=== PATIENT | male | born 1955 | race Caucasian/White ===

== ENCOUNTER 2020-11-30 07:25 | Inpatient (IN) ==
[2020-11-30] MEDS ORDERED: Albuterol 2.5 MG/3 ML NEBULIZER IH ONE (07:34)
[2020-11-30] MEDS ORDERED: 0.9 % Sodium Chloride 1,000 ML IVC ONE (07:34)
[2020-11-30 08:13] LABS: Hematocrit 49.3 % (37.5-50.1); Hemoglobin 16.9 g/dL (12.9-16.9); Immature Granulocytes % 1.2 % (0-4); Lymphocytes # 0.9 K/mcL (0.6-4.6); Lymphocytes % 16.5 %; Mean Corpuscular HGB Conc 34.3 g/dL (31.6-35.5); Mean Corpuscular Hemoglobin 31.7 pg (28.0-33.3); Mean Corpuscular Volume 92.5 fL (83.0-100.0); Mean Platelet Volume 9.5 fL (9.4-12.4); Monocytes # 0.5 K/mcL (0.0-1.3); Monocytes % 8.6 %; Neutrophils # 4.2 K/mcL (1.6-8.9); Platelet Count 155 K/mcL (140-400); Red Blood Count 5.33 M/mcL (4.19-5.50); Red Cell Distribution Width 12.6 % (11.5-14.5); Segmented Neutrophils % 73.7 %; White Blood Count 5.7 K/mcL (4.3-11.1)
[2020-11-30 08:15] LABS: VBG HCO3 28 mEq/L (21-27); VBG PCO2 52 mmHg (41-51); VBG PH 7.34 pH Units (7.32-7.42); VBG PO2 32 mmHg (25-50)
[2020-11-30 08:22] LABS: Carboxyhemoglobin 1.7 % (0-5); INR 1.1
[2020-11-30 08:24] LABS: Activated Partial Thrombo Time 28.9 Seconds (26.0-36.0)
[2020-11-30 08:32] LABS: Alanine Aminotransferase 75 Units/L (7-52); Albumin 3.9 g/dL (3.5-5.7); Albumin/Globulin Ratio 1.2 (1.1-2.2); Alkaline Phosphatase 50 Units/L (34-104); Aspartate Amino Transferase 66 Units/L (13-39); BUN/Creatinine Ratio 23 (6-26); Bilirubin,Direct 0.2 mg/dL (0.0-0.2); Bilirubin,Indirect 0.7 mg/dL (0.0-1.0); Bilirubin,Total 0.9 mg/dL (0.3-1.0); Blood Urea Nitrogen 29 mg/dL (8-23); Calcium 8.5 mg/dL (8.6-10.3); Carbon Dioxide 29 mEq/L (23-29); Chloride 99 mEq/L (98-107); Creatine Kinase 271 Units/L (30-223); Globulin 3.2 g/dL (2.4-3.5); Glucose 162 mg/dL (70-105); Osmolality,Calculated 295 (280-300); Potassium 3.3 mEq/L (3.5-5.1); Sodium 138 mEq/L (136-145); Total Protein 7.1 g/dL (6.4-8.9); Troponin I 0.03 ng/mL (< 0.04); eGFR For African Americans > 60 (> 60); eGFR For Non-African Americans 58 (> 60)
[2020-11-30] MEDS ORDERED: Isovue-370 500 ML BOTTLE IVP ONE (08:33)
[2020-11-30 08:46] LABS: Influenza A PCR Negative (Negative); Influenza B PCR Negative (Negative); Resp. Syncytial Virus PCR Negative (Negative)
[2020-11-30 09:08] LABS: SARS-CoV-2 by PCR (In House) Positive (Negative)
[2020-11-30 10:35] LABS: Bacteria,Urine Few per hpf (None-Few); Bilirubin,Urine Negative (Negative); Blood,Urine Negative (Negative); Clarity,Urine Turbid (Clear); Color,Urine Yellow (Yellow); Glucose,Urine (UA) Normal (Normal); Granular Casts,Urine Many per lpf (None Seen); Hyaline Casts,Urine Few per lpf (None Seen); Ketones,Urine Negative (Negative); Leukocyte Esterase,Urine Negative (Negative); Mucus,Urine Few per lpf (None-Few); Nitrite,Urine Negative (Negative); Protein,Urine 70 mg/dL (Neg-Trace); RBC,Urine 0-3 per hpf (0-3); Specific Gravity,Urine 1.029 (1.010-1.025); Squamous Epithelial Cell,Urine Few per hpf (None-Few); Urobilinogen,Urine Normal (Normal)
[2020-11-30] MEDS ORDERED: Ondansetron 4 MG/2 ML VIAL IVP PRN (10:46)
[2020-11-30] MEDS ORDERED: Melatonin 3 MG TABLET PO PRN (10:46)
[2020-11-30 11:36] LABS: C-Reactive Protein 57 mg/L (Less than 10); Lactate Dehydrogenase 489 Units/L (140-271)
[2020-11-30 11:59] LABS: Ferritin > 1500 ng/mL (20-250)
[2020-11-30] MEDS ORDERED: Remdesivir 200 MG in 0.9 % Sodium Chloride 100 ML IVPB ONE (14:10)
[2020-12-01] MEDS: *HR* Enoxaparin 40 MG/0.4 ML SYRINGE SQ SCH (04:48)
[2020-12-01 07:14] LABS: Hematocrit 44.8 % (37.5-50.1); Hemoglobin 15.6 g/dL (12.9-16.9); Mean Corpuscular HGB Conc 34.8 g/dL (31.6-35.5); Mean Corpuscular Hemoglobin 31.8 pg (28.0-33.3); Mean Corpuscular Volume 91.4 fL (83.0-100.0); Mean Platelet Volume 9.4 fL (9.4-12.4); Platelet Count 164 K/mcL (140-400); Red Cell Distribution Width 12.8 % (11.5-14.5)
[2020-12-01 07:19] LABS: Albumin 3.5 g/dL (3.5-5.7); Albumin/Globulin Ratio 1.2 (1.1-2.2); Bilirubin,Direct 0.2 mg/dL (0.0-0.2); Bilirubin,Indirect 0.5 mg/dL (0.0-1.0); Bilirubin,Total 0.7 mg/dL (0.3-1.0); Globulin 2.9 g/dL (2.4-3.5); Total Protein 6.4 g/dL (6.4-8.9)
[2020-12-01 07:20] LABS: BUN/Creatinine Ratio 28 (6-26); Blood Urea Nitrogen 30 mg/dL (8-23); Calcium 8.3 mg/dL (8.6-10.3); Carbon Dioxide 29 mEq/L (23-29); Chloride 104 mEq/L (98-107); Glucose 141 mg/dL (70-105); Magnesium 2.7 mg/dL (1.6-2.6); Osmolality,Calculated 299 (280-300); Phosphorous 2.7 mg/dL (2.7-4.5); Potassium 3.3 mEq/L (3.5-5.1); Sodium 140 mEq/L (136-145); eGFR For African Americans > 60 (> 60); eGFR For Non-African Americans > 60 (> 60)
[2020-12-01] MEDS ORDERED: Dexamethasone Sodium Phos/PF 10 MG/ML VIAL IVP SCH (09:00)
[2020-12-01] MEDS: Dexamethasone Sodium Phos/PF 10 MG/ML VIAL IVP SCH (09:28)
[2020-12-01] MEDS: Remdesivir 100 MG in 0.9 % Sodium Chloride 100 ML IVPB SCH (16:36)
[2020-12-02 02:13] LABS: Alanine Aminotransferase 87 Units/L (7-52); Albumin 3.5 g/dL (3.5-5.7); Albumin/Globulin Ratio 1.3 (1.1-2.2); Alkaline Phosphatase 45 Units/L (34-104); Aspartate Amino Transferase 58 Units/L (13-39); BUN/Creatinine Ratio 26 (6-26); Bilirubin,Direct 0.1 mg/dL (0.0-0.2); Bilirubin,Indirect 0.6 mg/dL (0.0-1.0); Bilirubin,Total 0.7 mg/dL (0.3-1.0); Blood Urea Nitrogen 29 mg/dL (8-23); Calcium 8.4 mg/dL (8.6-10.3); Carbon Dioxide 29 mEq/L (23-29); Chloride 105 mEq/L (98-107); Globulin 2.8 g/dL (2.4-3.5); Glucose 167 mg/dL (70-105); Osmolality,Calculated 300 (280-300); Potassium 3.9 mEq/L (3.5-5.1); Sodium 140 mEq/L (136-145); Total Protein 6.3 g/dL (6.4-8.9); eGFR For African Americans > 60 (> 60); eGFR For Non-African Americans > 60 (> 60)
[2020-12-02] MEDS: *HR* Enoxaparin 40 MG/0.4 ML SYRINGE SQ SCH (05:03)
[2020-12-02] MEDS: Dexamethasone Sodium Phos/PF 10 MG/ML VIAL IVP SCH (09:20)
[2020-12-02] MEDS: Remdesivir 100 MG in 0.9 % Sodium Chloride 100 ML IVPB SCH (15:03)
[2020-12-03] MEDS: *HR* Enoxaparin 40 MG/0.4 ML SYRINGE SQ SCH (05:09)
[2020-12-03] MEDS: Acetaminophen 325 MG TABLET PO PRN (06:23)
[2020-12-03 07:12] LABS: Hematocrit 46.7 % (37.5-50.1); Hemoglobin 15.5 g/dL (12.9-16.9); Mean Corpuscular HGB Conc 33.2 g/dL (31.6-35.5); Mean Corpuscular Hemoglobin 30.9 pg (28.0-33.3); Mean Corpuscular Volume 93.2 fL (83.0-100.0); Mean Platelet Volume 8.8 fL (9.4-12.4); Platelet Count 225 K/mcL (140-400); Red Blood Count 5.01 M/mcL (4.19-5.50); Red Cell Distribution Width 12.7 % (11.5-14.5); White Blood Count 9.3 K/mcL (4.3-11.1)
[2020-12-03 07:33] LABS: BUN/Creatinine Ratio 28 (6-26); Blood Urea Nitrogen 29 mg/dL (8-23); Calcium 8.6 mg/dL (8.6-10.3); Carbon Dioxide 32 mEq/L (23-29); Chloride 105 mEq/L (98-107); Glucose 132 mg/dL (70-105); Magnesium 2.4 mg/dL (1.6-2.6); Osmolality,Calculated 304 (280-300); Potassium 3.7 mEq/L (3.5-5.1); Sodium 143 mEq/L (136-145); eGFR For African Americans > 60 (> 60); eGFR For Non-African Americans > 60 (> 60)
[2020-12-03 07:34] LABS: Albumin 3.5 g/dL (3.5-5.7); Albumin/Globulin Ratio 1.3 (1.1-2.2); Bilirubin,Direct 0.2 mg/dL (0.0-0.2); Bilirubin,Indirect 0.7 mg/dL (0.0-1.0); Bilirubin,Total 0.9 mg/dL (0.3-1.0); Globulin 2.7 g/dL (2.4-3.5); Total Protein 6.2 g/dL (6.4-8.9)
[2020-12-03] MEDS: Dexamethasone Sodium Phos/PF 10 MG/ML VIAL IVP SCH (08:46)
[2020-12-03] MEDS: Remdesivir 100 MG in 0.9 % Sodium Chloride 100 ML IVPB SCH (15:09)
[2020-12-03] MEDS ORDERED: *HR* LORazepam 2 MG/ML VIAL IVP ONE (22:06)
[2020-12-03] MEDS ORDERED: Furosemide 40 MG/4 ML VIAL IVP ONE (22:57)
[2020-12-03 23:07] LABS: ABG Base Excess 2 mEq/L (-2 to 3); ABG HCO3 26 mEq/L (21-27); ABG Oxygen Saturation 80 % (95-98); ABG PCO2 36 mmHg (35-45); ABG PH 7.46 pH Units (7.32-7.45); ABG PO2 41 mmHg (85-104); ABG TCO2 27 mEq/L (20-26)
[2020-12-03] MEDS: Tiotropium 10 INH DOSE IH SCH (23:22)
[2020-12-04 00:23] LABS: ABG Base Excess 2 mEq/L (-2 to 3); ABG HCO3 26 mEq/L (21-27); ABG Oxygen Saturation 82 % (95-98); ABG PCO2 37 mmHg (35-45); ABG PH 7.45 pH Units (7.32-7.45); ABG PO2 43 mmHg (85-104); ABG TCO2 27 mEq/L (20-26)
[2020-12-04 00:59] LABS: Hematocrit 48.2 % (37.5-50.1); Hemoglobin 16.1 g/dL (12.9-16.9); Mean Corpuscular HGB Conc 33.4 g/dL (31.6-35.5); Mean Corpuscular Hemoglobin 30.8 pg (28.0-33.3); Mean Corpuscular Volume 92.2 fL (83.0-100.0); Mean Platelet Volume 9.1 fL (9.4-12.4); Platelet Count 254 K/mcL (140-400); Red Blood Count 5.23 M/mcL (4.19-5.50); Red Cell Distribution Width 12.6 % (11.5-14.5); White Blood Count 11.5 K/mcL (4.3-11.1)
[2020-12-04 01:18] LABS: BUN/Creatinine Ratio 24 (6-26); Blood Urea Nitrogen 25 mg/dL (8-23); Calcium 8.8 mg/dL (8.6-10.3); Carbon Dioxide 32 mEq/L (23-29); Chloride 102 mEq/L (98-107); Glucose 182 mg/dL (70-105); Magnesium 2.2 mg/dL (1.6-2.6); Osmolality,Calculated 301 (280-300); Phosphorous 3.2 mg/dL (2.7-4.5); Potassium 3.9 mEq/L (3.5-5.1); Sodium 141 mEq/L (136-145); eGFR For African Americans > 60 (> 60); eGFR For Non-African Americans > 60 (> 60)
[2020-12-04 01:20] LABS: Albumin 3.7 g/dL (3.5-5.7); Albumin/Globulin Ratio 1.2 (1.1-2.2); Bilirubin,Direct 0.2 mg/dL (0.0-0.2); Bilirubin,Indirect 0.8 mg/dL (0.0-1.0); Total Protein 6.7 g/dL (6.4-8.9)
[2020-12-04] MEDS ORDERED: Haloperidol Lactate 5 MG/ML VIAL IVP ONE (02:11)
[2020-12-04] MEDS ORDERED: Benzonatate 100 MG CAPSULE PO PRN (02:12)
[2020-12-04] MEDS ORDERED: GuaiFENesin/Dextromethorphan TABLET PO PRN (02:13)
[2020-12-04] MEDS ORDERED: Morphine Sulfate 2 MG/ML SYRINGE IVP ONE (02:26)
[2020-12-04] MEDS ORDERED: Haloperidol Lactate 5 MG/ML VIAL IVP STA (02:47)
[2020-12-04] MEDS ORDERED: Dexmedetomidine HCl 400 MCG/100 ML MLS IVC ONE (02:59)
[2020-12-04] MEDS: Dexmedetomidine HCl 400 MCG/100 ML MLS IVC SCH ×4 (03:01→20:45)
[2020-12-04] MEDS ORDERED: *HR* LORazepam 2 MG/ML VIAL IVP ONE (03:13)
[2020-12-04] MEDS ORDERED: *HR* LORazepam 2 MG/ML VIAL ONE (03:19)
[2020-12-04] MEDS ORDERED: Ziprasidone 10 MG, Closed System Device IM Kit 1 EACH in Water for inj. (sterile) 0.5 ML IM ONE (03:31)
[2020-12-04 04:26] LABS: ABG Base Excess 4 mEq/L (-2 to 3); ABG HCO3 29 mEq/L (21-27); ABG Oxygen Saturation 98 % (95-98); ABG PCO2 45 mmHg (35-45); ABG PH 7.42 pH Units (7.32-7.45); ABG PO2 97 mmHg (85-104); ABG TCO2 31 mEq/L (20-26)
[2020-12-04] MEDS: *HR* Enoxaparin 40 MG/0.4 ML SYRINGE SQ SCH (05:25)
[2020-12-04] MEDS: Dexamethasone Sodium Phos/PF 10 MG/ML VIAL IVP SCH (07:36)
[2020-12-04] MEDS: Tiotropium 10 INH DOSE IH SCH (08:02)
[2020-12-04] MEDS: Thiamine (B-1) 100 MG TABLET PO SCH (09:14)
[2020-12-04] MEDS: Cholecalciferol (D-3) 1,000 UNIT (25MCG) TABLET PO SCH (09:14)
[2020-12-04] MEDS: Zinc Sulfate 220 MG CAPSULE PO SCH (09:14)
[2020-12-04] MEDS: Remdesivir 100 MG in 0.9 % Sodium Chloride 100 ML IVPB SCH (14:38)
[2020-12-05] MEDS: *HR* Enoxaparin 40 MG/0.4 ML SYRINGE SQ SCH (05:22)
[2020-12-05] MEDS: Tiotropium 10 INH DOSE IH SCH (08:36)
[2020-12-05 08:40] LABS: Albumin 3.3 g/dL (3.5-5.7); Albumin/Globulin Ratio 1.2 (1.1-2.2); Bilirubin,Direct 0.2 mg/dL (0.0-0.2); Bilirubin,Indirect 0.8 mg/dL (0.0-1.0); Globulin 2.8 g/dL (2.4-3.5); Total Protein 6.1 g/dL (6.4-8.9)
[2020-12-05] MEDS: Thiamine (B-1) 100 MG TABLET PO SCH (10:41)
[2020-12-05] MEDS: Zinc Sulfate 220 MG CAPSULE PO SCH (10:41)
[2020-12-05] MEDS: Cholecalciferol (D-3) 1,000 UNIT (25MCG) TABLET PO SCH (10:41)
[2020-12-05] MEDS: Dexamethasone Sodium Phos/PF 10 MG/ML VIAL IVP SCH (10:46)
[2020-12-05] MEDS: Dexmedetomidine HCl 400 MCG/100 ML MLS IVC SCH (20:12)
[2020-12-06] MEDS: *HR* Enoxaparin 40 MG/0.4 ML SYRINGE SQ SCH (05:53)
[2020-12-06 07:54] LABS: Basophils % 0.2 %; Eosinophils # 0.1 K/mcL (0.0-0.6); Eosinophils % 0.4 %; Hematocrit 46.5 % (37.5-50.1); Hemoglobin 15.4 g/dL (12.9-16.9); Lymphocytes # 0.7 K/mcL (0.6-4.6); Mean Corpuscular HGB Conc 33.1 g/dL (31.6-35.5); Mean Corpuscular Volume 93.6 fL (83.0-100.0); Mean Platelet Volume 10.1 fL (9.4-12.4); Monocytes # 0.3 K/mcL (0.0-1.3); Monocytes % 2.9 %; Neutrophils # 10.1 K/mcL (1.6-8.9); Platelet Count 129 K/mcL (140-400); Red Blood Count 4.97 M/mcL (4.19-5.50); Red Cell Distribution Width 12.7 % (11.5-14.5); Segmented Neutrophils % 89.5 %; White Blood Count 11.3 K/mcL (4.3-11.1)
[2020-12-06] MEDS: Tiotropium 10 INH DOSE IH SCH (07:54)
[2020-12-06 07:58] LABS: BUN/Creatinine Ratio 29 (6-26); Blood Urea Nitrogen 32 mg/dL (8-23); Calcium 8.7 mg/dL (8.6-10.3); Carbon Dioxide 33 mEq/L (23-29); Chloride 99 mEq/L (98-107); Glucose 189 mg/dL (70-105); Osmolality,Calculated 298 (280-300); Sodium 138 mEq/L (136-145); eGFR For African Americans > 60 (> 60); eGFR For Non-African Americans > 60 (> 60)
[2020-12-06] MEDS: Dexamethasone Sodium Phos/PF 10 MG/ML VIAL IVP SCH (09:05)
[2020-12-06] MEDS: Cholecalciferol (D-3) 1,000 UNIT (25MCG) TABLET PO SCH (09:05)
[2020-12-06] MEDS: Zinc Sulfate 220 MG CAPSULE PO SCH (09:05)
[2020-12-06] MEDS: Thiamine (B-1) 100 MG TABLET PO SCH (09:05)
[2020-12-06] MEDS: Dexmedetomidine HCl 400 MCG/100 ML MLS IVC SCH (13:41)
[2020-12-06] MEDS ORDERED: Isovue-370 500 ML BOTTLE IVP ONE (17:42)
[2020-12-06] MEDS ORDERED: *HR* Enoxaparin 120 MG/0.8 ML SYRINGE SQ SCH (21:00)
[2020-12-06] MEDS ORDERED: *HR* Enoxaparin 40 MG/0.4 ML SYRINGE SQ SCH (21:00)
[2020-12-07] MEDS: Dexmedetomidine HCl 400 MCG/100 ML MLS IVC SCH (03:04)
[2020-12-07] MEDS ORDERED: Perflutren Lipid Microsphere 1.3 ML in 0.9 % Sodium Chloride 8.7 ML IVP PRN ×2 (04:05→08:58)
[2020-12-07 06:29] LABS: Basophils % 0.1 %; Eosinophils # 0.2 K/mcL (0.0-0.6); Eosinophils % 1.7 %; Hematocrit 50.7 % (37.5-50.1); Hemoglobin 16.6 g/dL (12.9-16.9); Immature Granulocytes % 0.9 % (0-4); Lymphocytes # 0.5 K/mcL (0.6-4.6); Lymphocytes % 4.6 %; Mean Corpuscular HGB Conc 32.7 g/dL (31.6-35.5); Mean Corpuscular Hemoglobin 30.6 pg (28.0-33.3); Mean Corpuscular Volume 93.5 fL (83.0-100.0); Monocytes # 0.3 K/mcL (0.0-1.3); Monocytes % 2.8 %; Platelet Count 115 K/mcL (140-400); Red Blood Count 5.42 M/mcL (4.19-5.50); Red Cell Distribution Width 12.8 % (11.5-14.5); Segmented Neutrophils % 89.9 %
[2020-12-07 06:45] LABS: BUN/Creatinine Ratio 26 (6-26); Blood Urea Nitrogen 30 mg/dL (8-23); Carbon Dioxide 34 mEq/L (23-29); Chloride 99 mEq/L (98-107); Glucose 160 mg/dL (70-105); Osmolality,Calculated 296 (280-300); Potassium 4.1 mEq/L (3.5-5.1); Sodium 138 mEq/L (136-145); eGFR For African Americans > 60 (> 60); eGFR For Non-African Americans > 60 (> 60)
[2020-12-07] MEDS ORDERED: *HR* Heparin 5,000 UNIT/ML VIAL IVP PRN ×2 (07:48)
[2020-12-07] MEDS: Tiotropium 10 INH DOSE IH SCH (07:59)
[2020-12-07] MEDS ORDERED: Heparin 25,000UNIT/250ML 1/2NS 25,000 UNIT/250 ML IV.SOLN IVC SCH (08:00)
[2020-12-07 08:49] LABS: Hemoglobin 16.2 g/dL (12.9-16.9)
[2020-12-07 08:51] LABS: Hematocrit 48.9 % (37.5-50.1); Immature Platelets 4.5 % (1.1-6.1); Mean Corpuscular HGB Conc 33.1 g/dL (31.6-35.5); Mean Corpuscular Hemoglobin 31.2 pg (28.0-33.3); Mean Platelet Volume 9.7 fL (9.4-12.4); Red Blood Count 5.2 M/mcL (4.19-5.50); Red Cell Distribution Width 12.7 % (11.5-14.5); White Blood Count 9.7 K/mcL (4.3-11.1)
[2020-12-07] MEDS: Dexamethasone Sodium Phos/PF 10 MG/ML VIAL IVP SCH (09:02)
[2020-12-07 09:04] LABS: Heparin anti-factor XA UFH 0.37 IU/mL (0.30-0.70); INR 1.2
[2020-12-07] MEDS: Thiamine (B-1) 100 MG TABLET PO SCH (10:29)
[2020-12-07] MEDS: Cholecalciferol (D-3) 1,000 UNIT (25MCG) TABLET PO SCH (10:29)
[2020-12-07] MEDS: Zinc Sulfate 220 MG CAPSULE PO SCH (10:29)
[2020-12-07] MEDS ORDERED: Lidocaine -MPF 1% 5 ML AMPUL INFILT ONE (12:13)
[2020-12-07] MEDS: Acetaminophen 325 MG TABLET PO PRN (12:28)
[2020-12-07] MEDS ORDERED: *HR* Enoxaparin 120 MG/0.8 ML SYRINGE SQ SCH (19:15)
[2020-12-07 21:05] VITALS: BP 130/88; PULSE 77; TEMP 98.7; O2SAT 94
== END 2020-12-08 00:59 | disposition short-term general hospital (02) | DRG 177 ==
LOC: EMEROOARM 07:25 → 2ANU 07:25 → SUATTDRO 12:45 → 2ANU 14:17 → 3NENU 12-02 17:06
PROVIDERS: ADMIT Internal Medicine; ATTEND Internal Medicine